=== PATIENT | male | born 1960 | race Hispanic/Latino ===

== ENCOUNTER 2018-06-10 01:52 | Inpatient (IN) | payer OTHER ==
[~2018-06-10] VITALS: Ht 175.3 cm; Wt 95.7 kg
[2018-06-10] VITALS (19 sets, daily range): BP systolic 123–191; BP diastolic 84–98
[2018-06-10 02:30] LABS: BASOPHILS % (AUTO) 0.5 % (0.0-5.0); EOSINOPHILS % (AUTO) 0.7 % (0.0-8.0); HEMATOCRIT 49.3 % (42-54); LYMPHOCYTES % (AUTO) 12.2 % (21.0-51.0); MEAN CORPUSCULAR HEMOGLOBIN 29.9 pg (27.0-33.0); MEAN CORPUSCULAR HGB CONC 33.3 g/dL (32.0-36.0); MEAN CORPUSCULAR VOLUME 89.7 fL (79-99); MONOCYTES % (AUTO) 7.5 % (3.0-13.0); NEUTROPHILS % (AUTO) 79.1 % (40.0-77.0); NUCLEATED RED BLOOD CELLS 0.1 % (0.0-0.19); PLATELET COUNT (AUTO) 136 K/uL (130-400); RED CELL DISTRIBUTION WIDTH 13.2 % (11.0-15.5); WHITE BLOOD COUNT (AUTO) 10.8 K/uL (4.8-10.8)
[2018-06-10 02:35] LABS: CREATININE 0.9 mg/dL (0.5-1.5); POTASSIUM 4.1 mmol/L (3.5-5.1)
[2018-06-10 02:40] LABS: APPEARANCE,URINE Clear (CLEAR); BILIRUBIN,URINE Negative (NEGATIVE); COLOR,URINE Yellow (YELLOW); GLUCOSE, URINE (UA) 500 mg/dL (NEGATIVE); KETONES,URINE Negative (NEGATIVE); LEUKOCYTE ESTERASE ,URINE Negative (NEGATIVE); NITRATE,URINE Negative (NEGATIVE); OCCULT BLOOD,URINE Nonhemolyzed Trace (NEGATIVE); PROTEIN,URINE Negative (NEGATIVE); UROBILINOGEN,URINE 0.2 mg/dL (0.2-1.0)
[2018-06-10 02:49] LABS: ALBUMIN 3.4 g/dL (3.5-5.0); BILIRUBIN,TOTAL 0.8 mg/dL (0.2-1.0); TOTAL PROTEIN, SERUM 6.8 g/dL (6.0-8.3)
[2018-06-10 03:01] LABS: BACTERIA,URINE None Seen /HPF (None Seen); RBC,URINE None Seen /HPF (0-1); SQUAMOUS EPITHELIAL CELL,UR Moderate /HPF (0-2); WBC,URINE None Seen /HPF (0-1)
[2018-06-10] MEDS ORDERED: SODIUM CHLORIDE 0.9% 1000ML 1,000 ML IV ONE (03:23)
[2018-06-10] MEDS ORDERED: KETOROLAC TROMETHAMINE 30MG/ML ONE (03:23)
[2018-06-10] MEDS ORDERED: SODIUM CHLORIDE 0.9% 100 ML IV ONE (04:12)
[2018-06-10] MEDS ORDERED: CEFOXITIN SODIUM 2 GM VIAL ONE (04:12)
[2018-06-10 05:42] LABS: INR 1.08 (0.85-1.15); PARTIAL THROMBOPLASTIN TIME 32.9 SEC (26.3-35.5); PROTHROMBIN TIME 11.3 SEC (9.6-11.6)
[2018-06-10] MEDS: SODIUM CHLORIDE 0.9% 1000ML 1,000 ML IV SCH ×2 (05:46→11:50)
[2018-06-10] MEDS ORDERED: ACETAMINOPHEN 325 MG TAB PO PRN (06:00)
[2018-06-10] MEDS ORDERED: MORPHINE SULFATE 2 MG/ML 1ML SYG IV PRN (06:00)
[2018-06-10] MEDS: CEFOXITIN SODIUM 2 GM VIAL IVP SCH ×3 (11:52→23:25)
[2018-06-10] MEDS: PANTOPRAZOLE 40 MG/VIAL IVP SCH (11:57)
[2018-06-10] MEDS ORDERED: LACTATED RINGERS 1000ML 1,000 ML IV ONE (14:07)
[2018-06-10] MEDS ORDERED: BUPIVACAINE/EPI/PF 0.5% 30ML VIAL IJ ONE (14:22)
[2018-06-10] MEDS ORDERED: LIDOCAINE PF 2% 5ML ABBOJECT ONE (15:06)
[2018-06-10] MEDS ORDERED: SUCCINYLCHOLINE CHLORIDE 20 MG/ML 10 ML VIAL ONE (15:06)
[2018-06-10] MEDS ORDERED: PROPOFOL 10 MG/ML 20ML VIAL IV ONE (15:07)
[2018-06-10] MEDS ORDERED: ROCURONIUM 10MG/1ML SYR 10 MG/ML ML ONE (15:07)
[2018-06-10] MEDS ORDERED: ONDANSETRON HCL 4 MG/2 ML VIAL ONE (15:07)
[2018-06-10] MEDS ORDERED: FENTANYL CITRATE PF 50 MCG/1 ML 2ML VIAL ONE (15:07)
[2018-06-10] MEDS ORDERED: MIDAZOLAM HCL 1 MG/ML 2ML VIAL ONE (15:07)
[2018-06-10] MEDS ORDERED: KETAMINE 50MG/ML SYRINGE 50 MG/ML DISP.SYRIN IV ONE (15:13)
[2018-06-10] MEDS ORDERED: NEOSTIGMINE 5MG/5ML SYR IV ONE (16:09)
[2018-06-10] MEDS ORDERED: GLYCOPYRROLATE 1 MG/5 ML SYRINGE ONE (16:09)
[2018-06-10] MEDS ORDERED: METOCLOPRAMIDE 10 MG/2 ML VIAL ONE (16:40)
[2018-06-10] MEDS: ONDANSETRON HCL 4 MG/2 ML VIAL IV PRN ×2 (16:43→17:01)
[2018-06-10] MEDS: MORPHINE SULFATE 4 MG/1ML SYG IV PRN ×2 (16:49→17:01)
[2018-06-11] VITALS: BP 125/69
[2018-06-11] MEDS: SODIUM CHLORIDE 0.9% 1000ML 1,000 ML IV SCH (03:57)
[2018-06-11 04:25] LABS: BASOPHILS % (AUTO) 0.2 % (0.0-5.0); HEMATOCRIT 44.5 % (42-54); LYMPHOCYTES % (AUTO) 7.5 % (21.0-51.0); MEAN CORPUSCULAR HEMOGLOBIN 30.8 pg (27.0-33.0); MEAN CORPUSCULAR HGB CONC 34.2 g/dL (32.0-36.0); MEAN CORPUSCULAR VOLUME 90.3 fL (79-99); MONOCYTES % (AUTO) 5.3 % (3.0-13.0); PLATELET COUNT (AUTO) 159 K/uL (130-400); RED BLOOD CELL COUNT(AUTO) 4.93 MIL/uL (4.50-6.20); RED CELL DISTRIBUTION WIDTH 13.5 % (11.0-15.5); WHITE BLOOD COUNT (AUTO) 9.5 K/uL (4.8-10.8)
[2018-06-11 04:29] VITALS: BP 141/74
[2018-06-11 04:41] LABS: ALBUMIN 2.9 g/dL (3.5-5.0); BILIRUBIN,TOTAL 0.6 mg/dL (0.2-1.0); CREATININE 1.1 mg/dL (0.5-1.5); POTASSIUM 4.5 mmol/L (3.5-5.1); TOTAL PROTEIN, SERUM 6.6 g/dL (6.0-8.3)
[2018-06-11] MEDS: CEFOXITIN SODIUM 2 GM VIAL IVP SCH (05:31)
[2018-06-11] MEDS ORDERED: TYL3 PO (07:12)
[2018-06-11 08:00] VITALS: BP 115/72
[2018-06-11] MEDS: PANTOPRAZOLE 40 MG/VIAL IVP SCH (09:00)
[2018-06-11 11:00] VITALS: BP 130/81
== END 2018-06-11 13:38 | disposition home or self-care (01) | DRG 343 ==
LOC: EDH 01:52 → EDHIP 04:38 → 4BH 06:04
PROVIDERS: ADMIT Internal Medicine; ATTEND Internal Medicine
PROC: 0DTJ4ZZ Resection of Appendix, Percutaneous Endoscopic Approach (ICD-10-PCS; principal; 2018-06-10 15:32)
DX: K35.80 Unspecified acute appendicitis (principal); Z83.3 Family history of diabetes mellitus; Z82.49 Family history of ischemic heart disease and other diseases of the circulatory system
CPT/HCPCS: 36415; 74176; 80053; 81001; 83036; 85025; 85610; 85730; 88304; 93005; A4218; A4344; C9113; J0330; J0694; J1885; J2001; J2250; J2270; J2405; J2704; J2710; J2765; J3010; J3490; J7030; J7120

== ENCOUNTER 2018-10-02 01:19 | Emergency (ER) | payer OTHER ==
[~2018-10-02 01:19] MED LIST: TYL3 PO
[2018-10-02] MEDS ORDERED: PREDNISONE 20 MG TABLET ONE (02:48)
[2018-10-02] MEDS ORDERED: MAG HYDROX/AL HYDROX/SIMETH ES 30 ML SUSP UDCUP ONE (02:48)
[2018-10-02] MEDS ORDERED: AZITHROMYCIN 250 MG TABLET PO ONE (02:49)
[2018-10-02] MEDS ORDERED: ALBUTEROL SULFATE 0.083% 2.5 MG/3 ML INH IH ONE (02:51)
== END 2018-10-02 03:31 | disposition home or self-care (01) ==
LOC: EDH 01:19
DX: J20.9 Acute bronchitis, unspecified (principal); Z90.49 Acquired absence of other specified parts of digestive tract
CPT/HCPCS: 94640